=== PATIENT | female | born 1935 | race Caucasian/White ===

== ENCOUNTER 2018-07-13 15:48 | Inpatient (IN) | payer OTHER ==
[~2018-07-13] VITALS: Ht 162.6 cm; Wt 49.9 kg
[~2018-07-13 15:48] MED LIST: APAP/HYDROCODON1 T13 PO; COL100 PO; HEP5I SC; OSCD PO; PRI20 PO; THERAGRAN-M1 TA4 PO; ZOC20 PO; ZOFI IV
[2018-07-13 17:20] LABS: BASOPHIL % 0.6 % (0-2); PLATELET COUNT 230 x10^3mcL (130-400); RED CELL DISTRIBUTION WIDTH 13.8 % (11.5-14.5)
[2018-07-13 17:26] LABS: CALCIUM 8.5 mg/dL (8.5-10.1); CARBON DIOXIDE 27.9 mmol/L (21-32); CHLORIDE SERUM 108 mmol/L (98-107); CREATININE SERUM 0.9 mg/dL (0.6-1.0); GLUCOSE SERUM 120 mg/dL (74-106); POTASSIUM SERUM 3.7 mmol/L (3.5-5.1); SODIUM SERUM 144 mmol/L (136-145)
[2018-07-13 17:31] LABS: ALKALINE PHOSPHATASE 49 U/L (46-116); ALT/SGPT 23 U/L (14-59); AST/SGOT 22 U/L (15-37); BILIRUBIN TOTAL 0.31 mg/dL (0.20-1.00); TOTAL PROTEIN, SERUM 6.4 g/dL (6.4-8.2)
[2018-07-13 17:32] LABS: ALBUMIN 3.3 g/dL (3.4-5.0)
[2018-07-13 17:46] LABS: CHOLESTEROL/HDL RATIO 2.6; MAGNESIUM 1.8 mg/dL (1.8-2.4); PHOSPHOROUS 3.1 mg/dL (2.5-4.9)
[2018-07-13 18:50] VITALS: BP 136/71
[2018-07-13 19:57] VITALS: BP 136/71
[2018-07-13 20:01] VITALS: Ht 162.6 cm; Wt 49.9 kg
[2018-07-13 21:27] VITALS: BP 110/45
[2018-07-14 04:10] LABS: CK-MB 6.3 ng/mL (0-3.6)
[2018-07-14 05:15] VITALS: BP 101/53
[2018-07-14 06:34] LABS: BASOPHIL % 0.1 % (0-2); PLATELET COUNT 190 x10^3mcL (130-400); RED CELL DISTRIBUTION WIDTH 13.9 % (11.5-14.5)
[2018-07-14 06:44] LABS: CALCIUM 8.3 mg/dL (8.5-10.1); CARBON DIOXIDE 26.7 mmol/L (21-32); CHLORIDE SERUM 110 mmol/L (98-107); CREATININE SERUM 0.9 mg/dL (0.6-1.0); GLUCOSE SERUM 110 mg/dL (74-106); POTASSIUM SERUM 4.4 mmol/L (3.5-5.1); SODIUM SERUM 144 mmol/L (136-145)
[2018-07-14 11:13] VITALS: BP 118/58
[2018-07-14 14:00] VITALS: BP 125/70
[2018-07-14 15:32] VITALS: BP 125/70
[2018-07-14 16:41] VITALS: BP 97/49
== END 2018-07-14 18:00 | disposition home or self-care (01) | DRG 533 ==
LOC: ED 15:48 → DU 16:57 → ED 16:57 → MU 16:57 → DU 18:46
PROVIDERS: Emergency Medicine; Family Medicine
DX: S72.341A Displaced spiral fracture of shaft of right femur, initial encounter for closed fracture (principal); N17.0 Acute kidney failure with tubular necrosis; E44.1 Mild protein-calorie malnutrition; Z68.1 Body mass index [BMI] 19.9 or less, adult; I10 Essential (primary) hypertension; D53.9 Nutritional anemia, unspecified; E03.9 Hypothyroidism, unspecified; Z66 Do not resuscitate; W01.0XXA Fall on same level from slipping, tripping and stumbling without subsequent striking against object, initial encounter; Y92.000 Kitchen of unspecified non-institutional (private) residence as the place of occurrence of the external cause
CPT/HCPCS: 83880; J1644; J2270; J2405; J7030; J7040; Q0092

== ENCOUNTER 2018-11-19 16:06 | Inpatient (IN) | payer OTHER ==
[~2018-11-19] VITALS: Ht 162.6 cm; Wt 47.2 kg
[2018-11-19 18:12] LABS: BASOPHIL % 0.4 % (0-2)
[2018-11-19 18:14] LABS: PLATELET COUNT 406 x10^3mcL (130-400)
[2018-11-19 18:27] LABS: CALCIUM 9.1 mg/dL (8.5-10.1); CARBON DIOXIDE 27.7 mmol/L (21-32); CHLORIDE SERUM 104 mmol/L (98-107); CREATININE SERUM 1.3 mg/dL (0.6-1.0); GLUCOSE SERUM 94 mg/dL (74-106); POTASSIUM SERUM 3.4 mmol/L (3.5-5.1); SODIUM SERUM 140 mmol/L (136-145)
[2018-11-19 18:31] LABS: ALKALINE PHOSPHATASE 113 U/L (46-116); ALT/SGPT 22 U/L (14-59); AST/SGOT 20 U/L (15-37); BILIRUBIN TOTAL 0.22 mg/dL (0.20-1.00); LIPASE 148 IU/L (73-393)
[2018-11-19 18:33] LABS: ALBUMIN 2.8 g/dL (3.4-5.0)
[2018-11-19 20:56] LABS: MAGNESIUM 2.1 mg/dL (1.8-2.4); PHOSPHOROUS 3.2 mg/dL (2.5-4.9)
[2018-11-19 21:04] LABS: T3 TOTAL 0.11 ng/mL
[2018-11-19 21:07] LABS: FREE T4 0.7 ng/dL (0.76-1.46); FREE THYROXINE INDEX 1.9 ug/dL (1.4-4.5); T4(THYROXINE) 5.3 ug/dL (4.7-13.3)
[2018-11-19] MEDS ORDERED: TOPROL XL25 MG PO (21:55)
[2018-11-19] MEDS ORDERED: SYNTHROID0.175 MG PO (21:55)
[2018-11-19] MEDS ORDERED: RESTASIS0.051 OU (21:55)
[2018-11-19 21:57] VITALS: BP 146/62
[2018-11-20 05:43] VITALS: BP 129/76
[2018-11-20 06:34] LABS: CALCIUM 8.2 mg/dL (8.5-10.1); CARBON DIOXIDE 23.3 mmol/L (21-32); CHLORIDE SERUM 107 mmol/L (98-107); CREATININE SERUM 1.1 mg/dL (0.6-1.0); GLUCOSE SERUM 129 mg/dL (74-106); POTASSIUM SERUM 4.2 mmol/L (3.5-5.1); SODIUM SERUM 143 mmol/L (136-145)
[2018-11-20 06:59] LABS: BASOPHIL % 0.1 % (0-2); PLATELET COUNT 348 x10^3mcL (130-400)
[2018-11-20 07:00] LABS: RED CELL DISTRIBUTION WIDTH 15.6 % (11.5-14.5)
[2018-11-20 08:57] VITALS: BP 136/76
[2018-11-20 10:54] LABS: UA SPECIFIC GRAVITY >=1.030 (1.005-1.035); microscopic required? YES; urine erythrocyte 2+ (NEGATIVE)
[2018-11-20] MEDS ORDERED: LAC PO (16:03)
[2018-11-20] MEDS ORDERED: KEFLEX500 M1 PO (16:03)
[2018-11-20] MEDS ORDERED: FLO4 PO (16:04)
[2018-11-20 16:10] VITALS: BP 136/76
== END 2018-11-20 17:21 | disposition home or self-care (01) | DRG 689 ==
LOC: ED 16:06 → MU 20:23
PROVIDERS: Emergency Medicine; ADMIT Family Medicine
DX: N13.6 Pyonephrosis (principal); E43 Unspecified severe protein-calorie malnutrition; N39.0 Urinary tract infection, site not specified; E86.0 Dehydration; E03.9 Hypothyroidism, unspecified; K44.9 Diaphragmatic hernia without obstruction or gangrene; E87.6 Hypokalemia; R73.03 Prediabetes; E78.5 Hyperlipidemia, unspecified
CPT/HCPCS: 83880; 84439; J0696; J1100; J2405; J7030; Q0092; Q9967

== ENCOUNTER 2018-11-22 11:01 | Inpatient (IN) | payer OTHER ==
[~2018-11-22] VITALS: Ht 162.6 cm; Wt 49.7 kg
[~2018-11-22 11:01] MED LIST changes: +FLO4 PO; +KEFLEX500 M1 PO; +LAC PO; +RESTASIS0.051 OU; +SYNTHROID0.175 MG PO; +TOPROL XL25 MG PO
[2018-11-22 11:56] LABS: BASOPHIL % 0.3 % (0-2)
[2018-11-22 11:57] LABS: PLATELET COUNT 602 x10^3mcL (130-400); RED CELL DISTRIBUTION WIDTH 15.5 % (11.5-14.5)
[2018-11-22 12:09] LABS: CALCIUM 8.7 mg/dL (8.5-10.1); CARBON DIOXIDE 28.8 mmol/L (21-32); CHLORIDE SERUM 102 mmol/L (98-107); CREATININE SERUM 0.9 mg/dL (0.6-1.0); GLUCOSE SERUM 116 mg/dL (74-106); POTASSIUM SERUM 3.4 mmol/L (3.5-5.1); SODIUM SERUM 139 mmol/L (136-145)
[2018-11-22 12:15] LABS: ALKALINE PHOSPHATASE 94 U/L (46-116); ALT/SGPT 20 U/L (14-59); AMYLASE 73 U/L (25-115); AST/SGOT 21 U/L (15-37); BILIRUBIN TOTAL 0.3 mg/dL (0.20-1.00); LIPASE 141 IU/L (73-393); TOTAL PROTEIN, SERUM 6.8 g/dL (6.4-8.2)
[2018-11-22 12:16] LABS: ALBUMIN 2.8 g/dL (3.4-5.0)
[2018-11-22 14:23] LABS: microscopic required? YES; urine erythrocyte 2+ (NEGATIVE)
[2018-11-22 14:42] LABS: T4(THYROXINE) 5.2 ug/dL (4.7-13.3)
[2018-11-22] MEDS ORDERED: TOPROL XL25 MG PO (17:11)
[2018-11-22] MEDS ORDERED: LEVO-T175 MCG PO (17:11)
[2018-11-22] MEDS ORDERED: WELCHOL3.75 GM/P1 PO (17:12)
[2018-11-22] MEDS ORDERED: RESTASIS0.051 OU (17:12)
[2018-11-22] MEDS ORDERED: NORCO1 TA2 PO (17:12)
[2018-11-22] MEDS ORDERED: LAC PO (17:12)
[2018-11-22] MEDS ORDERED: CEPHALEXIN500 MG PO (17:13)
[2018-11-22] MEDS ORDERED: TAMSULOSIN HYD0.4 M1 PO (17:13)
[2018-11-22 18:18] VITALS: BP 120/55
[2018-11-22 18:24] VITALS: Ht 162.6 cm; Wt 49.7 kg
[2018-11-22 18:26] LABS: PHOSPHOROUS 3.7 mg/dL (2.5-4.9)
[2018-11-22 21:02] VITALS: BP 105/55
[2018-11-23 05:38] VITALS: BP 110/49
[2018-11-23 07:24] LABS: CALCIUM 7.6 mg/dL (8.5-10.1); CARBON DIOXIDE 25.4 mmol/L (21-32); CHLORIDE SERUM 108 mmol/L (98-107); CREATININE SERUM 0.9 mg/dL (0.6-1.0); GLUCOSE SERUM 79 mg/dL (74-106); POTASSIUM SERUM 3.4 mmol/L (3.5-5.1); SODIUM SERUM 140 mmol/L (136-145)
[2018-11-23 08:07] LABS: BASOPHIL % 0.1 % (0-2); PLATELET COUNT 368 x10^3mcL (130-400)
[2018-11-23 08:12] LABS: RED CELL DISTRIBUTION WIDTH 16.2 % (11.5-14.5)
[2018-11-23 09:18] VITALS: BP 126/55
[2018-11-23 17:21] VITALS: BP 145/49
[2018-11-23 20:28] VITALS: BP 117/54
[2018-11-24 06:38] LABS: CARBON DIOXIDE 24.6 mmol/L (21-32); CHLORIDE SERUM 109 mmol/L (98-107); CREATININE SERUM 0.9 mg/dL (0.6-1.0); GLUCOSE SERUM 77 mg/dL (74-106); POTASSIUM SERUM 3.2 mmol/L (3.5-5.1); SODIUM SERUM 141 mmol/L (136-145)
[2018-11-24 08:00] LABS: BASOPHIL % 0.3 % (0-2); PLATELET COUNT 400 x10^3mcL (130-400)
[2018-11-24 08:21] LABS: RED CELL DISTRIBUTION WIDTH 15.7 % (11.5-14.5)
[2018-11-24 09:28] VITALS: BP 136/70
[2018-11-24 17:20] VITALS: BP 125/73
[2018-11-24 21:17] VITALS: BP 134/67
[2018-11-25 05:23] VITALS: BP 112/61
[2018-11-25 09:00] VITALS: BP 141/75
[2018-11-25 09:07] LABS: CARBON DIOXIDE 27.1 mmol/L (21-32); CHLORIDE SERUM 109 mmol/L (98-107); CREATININE SERUM 1.1 mg/dL (0.6-1.0); GLUCOSE SERUM 101 mg/dL (74-106); SODIUM SERUM 141 mmol/L (136-145)
[2018-11-25 09:16] LABS: BASOPHIL % 0.3 % (0-2)
[2018-11-25 09:17] LABS: PLATELET COUNT 409 x10^3mcL (130-400); RED CELL DISTRIBUTION WIDTH 15.7 % (11.5-14.5)
[2018-11-25 16:40] VITALS: BP 139/63
[2018-11-25 20:30] VITALS: BP 116/79
[2018-11-25 20:31] VITALS: BP 126/67
[2018-11-26 05:24] VITALS: BP 126/67
[2018-11-26 06:23] LABS: CALCIUM 8.2 mg/dL (8.5-10.1); CARBON DIOXIDE 27.2 mmol/L (21-32); CHLORIDE SERUM 112 mmol/L (98-107); GLUCOSE SERUM 77 mg/dL (74-106); POTASSIUM SERUM 3.5 mmol/L (3.5-5.1); SODIUM SERUM 145 mmol/L (136-145)
[2018-11-26 07:20] LABS: BASOPHIL % 0.4 % (0-2); PLATELET COUNT 390 x10^3mcL (130-400)
[2018-11-26 07:22] LABS: RED CELL DISTRIBUTION WIDTH 16.5 % (11.5-14.5)
[2018-11-26 08:49] VITALS: BP 129/77
[2018-11-26] MEDS ORDERED: LAC30L PO (11:09)
[2018-11-26] MEDS ORDERED: REG5 PO (11:10)
[2018-11-26] MEDS ORDERED: FERROUS SULFAT325 M2 PO (11:13)
[2018-11-26 11:54] VITALS: BP 129/77
== END 2018-11-26 14:45 | disposition home or self-care (01) | DRG 377 ==
LOC: ED 11:01 → MU 17:20
PROVIDERS: Emergency Medicine; Internal Medicine; Internal Medicine Gastroenterology; ADMIT Family Medicine
PROC: 0DB78ZX Excision of Stomach, Pylorus, Via Natural or Artificial Opening Endoscopic, Diagnostic (ICD-10-PCS; principal; 2018-11-23 09:00)
DX: K25.4 Chronic or unspecified gastric ulcer with hemorrhage (principal); N17.0 Acute kidney failure with tubular necrosis; E43 Unspecified severe protein-calorie malnutrition; N13.2 Hydronephrosis with renal and ureteral calculous obstruction; Z68.1 Body mass index [BMI] 19.9 or less, adult; E87.6 Hypokalemia; K26.7 Chronic duodenal ulcer without hemorrhage or perforation; K44.9 Diaphragmatic hernia without obstruction or gangrene; E03.9 Hypothyroidism, unspecified; I10 Essential (primary) hypertension; E78.5 Hyperlipidemia, unspecified; R80.9 Proteinuria, unspecified
CPT/HCPCS: 43235; 82962; 83880; 88344; C9113; J1200; J1610; J1956; J2250; J2310; J2405; J2765; J2916; J3010; J3480; J3490; J7030; J7040; J8597; Q0092

== ENCOUNTER 2018-12-11 15:03 | Inpatient (IN) | payer OTHER ==
[~2018-12-11] VITALS: Ht 162.6 cm; Wt 55.1 kg
[~2018-12-11 15:03] MED LIST changes: +CEPHALEXIN500 MG PO; +FERROUS SULFAT325 M2 PO; +LAC30L PO; +LEVO-T175 MCG PO; +NORCO1 TA2 PO; +REG5 PO; +TAMSULOSIN HYD0.4 M1 PO; +WELCHOL3.75 GM/P1 PO
[2018-12-11 15:06] VITALS: Ht 162.6 cm; Wt 55.1 kg
--- NOTE | 2018-12-11 15:23 | NUR ---
PT AWAKE AND ALERT. PT BIBA FROM HOME FOR C/O EPIGASTRIC PAIN AND SOB AFTER EATING A LOT FOR LUNCH. PARAMEDICS REPORT, APPEARED IN MODERATE RESP DISTRESS UPON ARRIVAL BUT REPORTED RELIEF OF SYMPTOMS AFTER THEY INITIATED CALMING MEASURES. PT DENIES ANY EPIGASTRIC PAIN AT THIS TIME. NAD. RESP E/U. PT ON FULL CM. CALL LIGHT WITHIN REACH. PT IN HIGH FOWLERS TO HELP RESPIRATIONS.
--- NOTE | 2018-12-11 16:27 | NUR ---
PT WAS ACTIVELY VOMITING. DR CARRERA NOTIFIED. ZOFRAN ADMINISTERED PER DR KEYES
--- NOTE | 2018-12-11 16:37 | NUR ---
PORTABLE ULTRASOUND AT BEDSIDE
[2018-12-11 16:41] LABS: BASOPHIL % 0.5 % (0-2); PLATELET COUNT 275 x10^3mcL (130-400)
[2018-12-11 16:45] LABS: CALCIUM 9.1 mg/dL (8.5-10.1); CARBON DIOXIDE 30.5 mmol/L (21-32); CHLORIDE SERUM 105 mmol/L (98-107); CREATININE SERUM 0.9 mg/dL (0.6-1.0); GLUCOSE SERUM 120 mg/dL (74-106); POTASSIUM SERUM 3.6 mmol/L (3.5-5.1); SODIUM SERUM 144 mmol/L (136-145)
[2018-12-11 16:49] LABS: ALKALINE PHOSPHATASE 77 U/L (46-116); ALT/SGPT 28 U/L (14-59); AST/SGOT 34 U/L (15-37); BILIRUBIN TOTAL 0.2 mg/dL (0.20-1.00); LIPASE 1345 IU/L (73-393); TOTAL PROTEIN, SERUM 6.9 g/dL (6.4-8.2)
[2018-12-11 17:13] LABS: RED CELL DISTRIBUTION WIDTH 20.7 % (11.5-14.5)
[2018-12-11 17:53] LABS: rbc morphology (normal/abnorm) ABNORMAL (NORMAL)
[2018-12-11 17:57] LABS: target cell (codocyte) 1+
--- NOTE | 2018-12-11 18:21 | NUR ---
PORTABLE ULTRASOUND AT BEDSIDE
--- NOTE | 2018-12-11 18:23 | NUR ---
PT HAS EDEMA NOTED TO LT LOWER EXTREMITY. PT REPORTS PRIMARY CARE PHYSICIAN IS AWARE AND TOLD HER SHE IS RETAINING WATER. PT ALSO HAD BRUISE TO R FOREARM.
--- NOTE | 2018-12-11 18:46 | NUR ---
DAUGHTER AT BEDSIDE
--- NOTE | 2018-12-11 19:10 | NUR ---
REPORT GIVEN TO MARLEE RAISIN WASHER NURSE TO ASSUME CARE OF PT
--- NOTE | 2018-12-11 19:15 | NUR ---
RECIEVED REPORT FROM BRANDON BRAVO. PT OBSERVED LAYING ON GURNEY IN NAD. BREATHING EVEN AND UNLABORED. PT A&0X4, SPEAKING FULL CLEAR SENTENCES. CM AND [address] FAMILY AT BEDSIDE. WILL CONTINUE TO MONITOR.
--- NOTE | 2018-12-11 20:20 | NUR ---
REPORT CALLED TO TERRENCE BRAVO.
[2018-12-11 20:26] LABS: CHOLESTEROL/HDL RATIO 2.4
--- NOTE | 2018-12-11 20:26 | NUR ---
PT TRANSFERED TO ROOM 219B
--- NOTE | 2018-12-11 20:28 | NUR ---
PT TRANSFERED TO ROOM 216B AT THIS TIME IN NAD. BREATHING EVEN AND UNLABORED. PT A&OX4, SPEAKING FULL CLEAR SENTENCES. PT AND FAMILY VERBALIZED UNDERSTANDING OF PLAN OF CARE. PORTABLE CM PLACED ON PT FOR TRANSFER. PT TRANSFERED VIA [facility] ACCOMPANIED BY EMT RENETTA AND RN NEIDA. BELONGINGS SENT WITH PT.
[2018-12-11 20:31] LABS: T3 TOTAL 0.8 ng/mL
[2018-12-11 20:32] LABS: FREE T4 1.34 ng/dL (0.76-1.46); FREE THYROXINE INDEX 3.8 ug/dL (1.4-4.5); T4(THYROXINE) 10.5 ug/dL (4.7-13.3)
[2018-12-11 20:58] VITALS: BP 118/71
--- NOTE | 2018-12-11 21:01 | NUR ---
RECEIVED PT FROM ED VIA MADALYN. ORIENTED PT TO ROOM AND SURROUNDINGS. IV NOTED TO LFA PATENT AND INTACT. TELE 7 PLACED ON PT READING NSR. INSTRUCTED PT ON THE USE OF CALL LIGHT FOR ASSISTANCE. ENDORSED PT TO PRIMARY NURSE TERRENCE
[2018-12-11] MEDS ORDERED: SIMVASTATIN10 M1 PO (21:24)
--- NOTE | 2018-12-11 22:07 | NUR ---
MEDICATED PT WITH LASIX AND ZOFRAN IVP, KIMBER LPROVIDE SNACK PER REQUEST. CALL LIGHT WITHIN REACH, BED IN LOWEST POSITION, WILL CONTINUE TO MONITOR.
--- NOTE | 2018-12-11 22:15 | NUR ---
ASSISTED PT TO BSC PER REQUEST. PT URINATED AND HAD SMALL BM. STILL WAITING ON UA, WILL WAIT FOR NEXT VOID.
--- NOTE | 2018-12-11 22:45 | NUR ---
ASSISTED PT TO BSC FOR ANOTHER URINATED, PT ABLE TO TRANSFER TO BSC W/ USE OF WALKER AND STAND BY SUPPORT. PT DENIES DYSURIA/LGIHTHEADEDNESS/DIZZINESS. EDUCATED PT THE S/E OF LASIX (HYPOTENSION, LIGHTHEADEDNESS, DIZZINESS) AND ENCOURAGED THE USE OF THE CALL LIGHT. PT VERBALIZES UNDERSTANDING, CALL LIGHT WITHIN REACH, BED IN LOWEST POSITION, WILL CONTINUE TO MONITOR.
--- NOTE | 2018-12-11 23:05 | NUR ---
ASSISTED PT TO THE BSC AGAIN FOR SMALL URINATION, PT REPORTS SHE FEELS LIKE ITS LESSENING, WILL CONTINUE TO ENSURE SAFETY THROUGHOUT NIGHT. CALL LIGHT WITHIN REACH, BED IN LOWEST POSITION, WILL CONTINUE TO MONITOR.
[2018-12-12] LABS: microscopic required? YES; urine erythrocyte 1+ (NEGATIVE)
--- NOTE | 2018-12-12 04:30 | NUR ---
ASSISTED PT TO THE BSC FOR URINATION, PT TOLERATED TRANSFER WELL, PT DENIES DYSURIA, ALL COMFORT AND SAFETY MEASURES PROVIDED FOR, CALL LIGHT WITHIN REACH, BED IN LOWEST POSITION, WILL CONTINUE TO MONITOR.
--- NOTE | 2018-12-12 05:05 | NUR ---
PT RESTED IN INTERVALS DURING SHIFT, ALTHOUGH PT GIVEN LASIX IVP 40MG AND VOIDED SEVERAL TIMES DURING THE NIGHT. PT DENIES DYRURIA. PT ABLE TO TRANSFER USING WALKER TO [facility], SLOW BUT STEADY. PT HAS VERY SMALL BM, DENIES ABD PAIN. PT DENIES N/V/D/CP. ALL COMFORT AND SAFETY MEASURES PROVIDED FOR, CALL LIGHT WITHIN REACH, BED IN LOWEST POSITION, WILL CONTINUE TO MONITOR.
[2018-12-12 06:15] VITALS: BP 102/60
[2018-12-12 06:36] LABS: PLATELET COUNT 232 x10^3mcL (130-400)
[2018-12-12 06:57] LABS: CALCIUM 8.8 mg/dL (8.5-10.1); CARBON DIOXIDE 29.5 mmol/L (21-32); CHLORIDE SERUM 104 mmol/L (98-107); GLUCOSE SERUM 90 mg/dL (74-106); LIPASE 763 IU/L (73-393); POTASSIUM SERUM 3.2 mmol/L (3.5-5.1); SODIUM SERUM 143 mmol/L (136-145)
--- NOTE | 2018-12-12 06:59 | NUR ---
MEDICATED PT WITH ZOFRAN PER REQUEST 30 MINS PRIOR TO BREAKFAST. ALL COMFORT AND SAFETY MEASURES PROVIDED FOR, CALL LIGHT WIHTIN REACH, BED IN LOWEST POSITION, WILL ENDORSE ALL CARE.
--- NOTE | 2018-12-12 07:21 | NUR ---
ENDORSED ALL CARE TO DAYSHIFT NURSE, ALL QUESTIONS AND CONCERNS ADDRESSED, CALL LIGHT WITHIN REACH, BED IN LOWEST POSITION, ALL COMFORT AND SAFETY MEASURES PROVIDED FOR.
--- NOTE | 2018-12-12 08:00 | NUR ---
PATIENT RECEIVED ALERT AND ORIENTED TIMES FOUR. SHE WAS GIVEN HER MEDICATION MINUS THE BP HER BP WAS AT 105/60 THIS AM. SHE HAS BEEN ON BEDREST WITH ASSIST UP TO [facility] WITH WALKER. SHE DENIES ANY PAIN AT THIS TIME. NOTED EDEMA TO THE BILATERAL LEGS ADN MORE TO THE LEFT THAN THE RIGHT FOOT WITH SWELLIMG. SHE HAS A CASE OF HAMMER TOES AND THE PATIENT HAS BEEN ABLE TO TRANSFER WITH ASSIST TO AND FROM THE [facility]. SHE HAS BEEN WITH DIMINISHED BREATH SOUNDS AND BOWEL SOUNDS ACTIVE. SHE HAS TOLEARTED DIET BUT HAD REPORTED A WEIGHT LOSS OF EXTREME ON ADMITTION. SHE REFUSED HER ASPIRIN THIS AM AND STATES THIS HAS COUSED HER TO HAVE GERD AND ULCERS. PATIENT IS WITH HISTORY OF ULCERS, HIATAL HENRIA AND PANCREATITIS AT THIS TIME. SHE AHS BEEN WITH VITALS AT THIS TIME AT 98.38, 67, 102/60, 98% ON ROOM AIR. SHE HAS A BIBISILAR ATELECTAIS AND CARDIOMEGALY ON THE CHEST XRAY. NO COUGH NOTED AND HAS BEEN WITH NO NASAL CONGESTION AT THIS TIME. SHE AHS BEEN GIVEN LASIX AND HAS BEEN HEPLOCKED OREERED. PATIENT HAS NOTED LAB THIS AM OF POTASSIUM AT 3.2, LIPASE REDUCED AT 763, AND THOMAS AND H AT 9.9/29. SHE HAS RECEIVED ZOFRAN EALIER AND APPEARS TO BE EFFECTIVE. HX OF HTN, THYROID. KIDNEY SONTS AND HIATAL HERNIA NOTED. PATIENT NORMAL SINUS ON THE MONITOR. NO ACUTE DISTRESS OR COMPLAINTS OF NAUSEA AT THIS TIME.
[2018-12-12 09:36] VITALS: BP 104/70
--- NOTE | 2018-12-12 10:31 | NUR ---
PATIENT STATES SHE HAS PALPATATIONS WITH THE ZOFRAN GIVEN SHE TAKES REGLAN AT HOME AND SHE DOES NOT HAVE PROBLEMS WITH THAT. WILL CALL THE RESIDENT THE PATIEN TIS ALSO WITH LOW POTASSIUM AND THIS TOO MAY BE AN ISSUE WITH TEN PALPATATIONS.
--- NOTE | 2018-12-12 10:35 | NUR ---
PAGED RESIDENT FOR PATIENT COMPLAINTS OF PALPATATIONS AND LOW POTASSIUM.
[2018-12-12 12:03] LABS: RED CELL DISTRIBUTION WIDTH 21.2 % (11.5-14.5)
--- NOTE | 2018-12-12 13:45 | NUR ---
PATIENT HAS FAMILY AT BEDSIDE AND GAVE THE POTASSIUM AND THE REGLAN ORDERED. PATIENT STILL DID NOT EAT MUCH AND REQUESTED PUDDING AND JELLO FOR NOW. SHE HAS NOT VOMITED NOR HAD CHILLS. WILL CONTINUE TO MONITOR INDICATED.
[2018-12-12 14:36] LABS: ATYPICAL LYMPH 3 %; BAND NEUTROPHIL 1 % (0-10); BASOPHIL 0 % (0-2); MONOCYTE 6 % (0-7); SEGMENTED NEUTROPHILS 70 % (37-75)
[2018-12-12 14:38] LABS: PLATELET MORPHOLOGY PLATELETS INCREASED; rbc morphology (normal/abnorm) ABNORMAL (NORMAL)
[2018-12-12 17:04] VITALS: BP 108/61
--- NOTE | 2018-12-12 17:27 | NUR ---
NO FEVER OR CHILLS NOTED AT THIS TIME. PATIENT REQUESTED TO SENT THE RESTASIS TO THE PHARMACY BUT SO FAR SHE HAS BEEN HESITANT TO RELINQISH THE EYE DROPS TO STAFF. SHE WANTS TO KEEP THEM WITH HER.
--- NOTE | 2018-12-12 19:35 | NUR ---
RECEIVED PT IN BED AWAKE, ALERT,ORIENTED X4. NO SOB NOTED ON ROOM AIR. BOWEL SOUNDS ACTIVE. SHE HAS NO C/O PAIN AT THIS TIME. NO C/O N/V. W/ HL TO LTFA INTACT. CALL LIGHT W/IN REACH.
[2018-12-12 21:06] VITALS: BP 101/56
--- NOTE | 2018-12-13 00:50 | NUR ---
PT AWAKE AND STATED SHE JUST USED THE BSC. SHE HAS NO C/O PAIN OR DISCOMFORT AT THIS TIME. PT WENT BACK TO SLEEP.
[2018-12-13 05:39] VITALS: BP 106/74
[2018-12-13 06:38] LABS: CALCIUM 8.4 mg/dL (8.5-10.1); CARBON DIOXIDE 31.5 mmol/L (21-32); CHLORIDE SERUM 105 mmol/L (98-107); CREATININE SERUM 0.9 mg/dL (0.6-1.0); GLUCOSE SERUM 76 mg/dL (74-106); LIPASE 311 IU/L (73-393); MAGNESIUM 1.9 mg/dL (1.8-2.4); PHOSPHOROUS 3.1 mg/dL (2.5-4.9); POTASSIUM SERUM 4.1 mmol/L (3.5-5.1); SODIUM SERUM 141 mmol/L (136-145)
[2018-12-13 07:13] LABS: BASOPHIL % 1.2 % (0-2); PLATELET COUNT 228 x10^3mcL (130-400)
--- NOTE | 2018-12-13 07:30 | NUR ---
RECEIVED PT. IN BED A/A/O X3. NO SOB, NO N/V NOTED. PT. DENIES ANY PAIN AT THIS TIME. IV SITE NOTED TO [facility]. SCD TO BLE MAINTAINED. BED IN LOW POS., CALL LIGHT WITHIN REACH. SIDE RAILS UP X3.
--- NOTE | 2018-12-13 09:00 | NUR ---
REPORTED WBC (3.0) AND H/H (7.7/23) TO DR. WEAVER. NO FURTHER ORDER RECEIVED AT THIS TIME.
[2018-12-13 09:38] VITALS: BP 131/67
[2018-12-13] MEDS ORDERED: LASIX20 MG PO (11:40)
--- NOTE | 2018-12-13 14:00 | NUR ---
D/C HOME INSTRUCTIONS GIVEN TO PT. WHO VERBALIZED UNDERSTANDING OF INSTRUCTIONS. IV H/L TO L FA REMOVED. PRESCRIPTION GIVEN. PHOTOGRAPH OF ECCHYMOSIS TO R ARM TAKEN PRIOR TO DISCHARGE.
--- NOTE | 2018-12-13 14:36 | NUR ---
PT. IS BEING DISCHARGED IN STABLE CONDITION VIA WHEELCHAIR. ALL BELONGINGS SENT HOME WITH PT. UPON DISCHARGE. ACCOMPANIED BY HER DAUGHTER AT TIME OF DISCHARGE.
== END 2018-12-13 14:35 | disposition home or self-care (01) | DRG 291 ==
LOC: ED 15:03 → DU 19:22 → MU 12-12 11:51
PROVIDERS: Emergency Medicine; ADMIT Internal Medicine
DX: I11.0 Hypertensive heart disease with heart failure (principal); K85.90 Acute pancreatitis without necrosis or infection, unspecified; E44.0 Moderate protein-calorie malnutrition; N13.2 Hydronephrosis with renal and ureteral calculous obstruction; Z68.1 Body mass index [BMI] 19.9 or less, adult; I50.23 Acute on chronic systolic (congestive) heart failure; I42.8 Other cardiomyopathies; K44.9 Diaphragmatic hernia without obstruction or gangrene; D64.9 Anemia, unspecified; E87.6 Hypokalemia; F41.9 Anxiety disorder, unspecified; E78.5 Hyperlipidemia, unspecified
CPT/HCPCS: 83880; 84439; J1940; J2405; J2765; Q0092